=== PATIENT | female | born 1985 | race Caucasian/White ===

== ENCOUNTER 2017-09-22 15:25 | Outpatient (CLI) | payer BC | END 2017-09-22 15:26 | disposition home or self-care (01) | LOC: BICRAD 15:25 | PROVIDERS: ATTEND Family Medicine | DX: M54.5 Low back pain (principal); M47.897 Other spondylosis, lumbosacral region | CPT/HCPCS: 72100 ==

== ENCOUNTER 2018-12-06 06:54 | Emergency (ER) | payer BC ==
[2018-12-06] MEDS ORDERED: Morphine 4 MG/ML VIAL ONE (07:16)
[2018-12-06] MEDS ORDERED: Ondansetron PF 4 MG/2 ML Vial ONE (07:16)
[2018-12-06 07:24] LABS: #Basophils 0.2 thou/uL (0.0-0.2); #Eosinphils 0.4 thou/uL (0.0-0.7); #Lymphocytes 5.2 thou/uL (1.20-3.40); #Monocytes 0.6 thou/uL (0.11-0.59); #Neutrophils 7.5 thou/uL (1.40-6.50); %Basophils 1.3 % (0.0-1.0); %Eosinophils 2.6 % (0.0-10.0); %Lymphocytes 37.8 % (21.0-51.0); %Monocytes 4.4 % (0.0-10.0); Hemoglobin 14.4 g/dL (12.0-16.0); Mean Corpuscular Hemoglobin 28.5 pg (27.0-31.0); Mean Corpuscular Volume 86.4 fL (78.0-98.0); Mean Platelet Volume 7.6 fL (7.4-10.4); Platelet Count 301 thou/uL (130-400); RBC Distribution Width 11.8 % (11.5-14.5); Red Blood Cell (RBC) Count 5.05 mill/uL (4.20-5.40); White Blood Cell (WBC) Count 13.9 thou/uL (4.8-10.8)
[2018-12-06 07:46] LABS: ALT (SGPT) 10 U/L (8-55); AST (SGOT) 23 U/L (5-34); Albumin 3.8 g/dL (3.5-5.0); Alkaline Phosphatase 100 U/L (40-150); Anion Gap 16 mmol/L (10-20); BUN (Urea Nitrogen) 8 mg/dL (7.0-18.7); Bilirubin, Total 0.3 mg/dL (0.2-1.2); Calc. Creatinine Clearance 0 mL/min (70-130); Calcium 9.2 mg/dL (7.8-10.44); Carbon Dioxide 18 mmol/L (22-29); Chloride 107 mmol/L (98-107); Estimated GFR-MDRD 87; Globulin 3.5 g/dL (2.4-3.5); Glucose 137 mg/dL (70-105); Potassium 4.6 mmol/L (3.5-5.1); Protein, Total 7.3 g/dL (6.0-8.3); Sodium 136 mmol/L (136-145)
--- NOTE | 2018-12-06 10:29 | ULT ---
ULTRASOUND PELVIS: 12/06/2018 HISTORY: A 33-year-old female status post miscarriage at 10 weeks' , presents with heavy vaginal blee ding and pelvic/abdominal pain. TECHNIQUE: A transabdominal transducer was used to evaluate the intrapelvic contents. A transvaginal transducer was not used. FINDINGS: The uterus measures approximately 10.5 x 4.5 x 7.5 cm. Located caudal to the uterus and dorsal to the urinary bladder, there is a complex structure, measuring approximately 5 x 2.5 x 4.5 cm. It consist s of an anechoic, fluid component anteriorly, and a solid, intermediate echogenicity component demographic analyst iorly. The solid component could represent hematoma/blood clots and/or retained products of concepti on. Embedded within the intermediate echogenicity solid material, there are tiny, hyperechoic foci, which are suspicious for tiny fragments of products of conception. The entire mass could either be i n the cervical canal or vaginal canal. No free fluid in the cul-de-sac. The bilateral ovaries are not visualized. Dr. Silva discussed the findings by telephone with Dr. Chand of the emergency department at the time of this dictation. IMPRESSION: Solid mass, partially surrounding by fluid, probably located either in the endocervical canal or the vaginal canal, consistent with blood clots, and also very suspicious for retained products of concept ion. POS: ANISA
--- NOTE | 2018-12-06 11:23 | CON ---
DATE OF CONSULTATION: 12/06/2018 Consult from the ER doctor for missed versus completed miscarriage. BACKGROUND INFORMATION: Ms. Pedro Perez is a 33-year-old, G1, who was diagnosed with a missed miscarriage over the weekend at an outside facility at approximately 10 weeks. 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 The patient had been seeing a reproductive endocrinology with a confirmed in the right uterine horn. After bleeding last week, she had a confirmed miscarriage, which was also confirmed in my office yesterday. She was counseled for medical management versus surgical management options and elected for Cytotec administration at home. She did two doses of Cytotec late yesterday evening and began having cramping pain and feeling dizzy and weak early this morning. She presented to the ER. I was called while in the operating room and notified of the patient's normal labs and normal vital signs. An ultrasound was ordered with the radiologist giving a verbal report to the ER doctor of products of conception suspected to be in the vaginal canal. After my surgical procedure completed, I presented to examine the patient in lithotomy position and after her consent, the speculum was placed into the vagina. Copious amount of clear fluid was noted and slipped out of the vaginal vault and an intact approximate 10-week fetus with placental tissue was noted in the vagina and gently removed. The patient was shown at her request, the products of conception specimen. After the products were removed from the vaginal vault, the cervix was identified. Only scant bleeding was noted from the cervix. The patient reported at that time that her symptoms of dizziness and weakness had resolved. She did not have any active bleeding on exam. The speculum was removed. The patient was cleaned and returned to the regular ER bed. We discussed observation over the next 20 to 30 minutes. If she is feeling well, we will discharge her home at that time. Job ID: [id number]
== END 2018-12-06 11:48 | disposition home or self-care (01) ==
LOC: ERS 06:54
DX: O03.4 Incomplete spontaneous abortion without complication (principal)
CPT/HCPCS: 36415; 76856; 80053; 85025; 86850; 86900; 86901; 88305; 93005; 96361; 96374; 96375; J2270; J2405

== ENCOUNTER 2019-08-22 10:20 | Emergency (ER) | payer BC ==
[2019-08-22 11:54] LABS: ALT (SGPT) 13 U/L (8-55); AST (SGOT) 14 U/L (5-34); Albumin 4.1 g/dL (3.5-5.0); Alkaline Phosphatase 97 U/L (40-110); Anion Gap 12 mmol/L (10-20); BUN (Urea Nitrogen) 11 mg/dL (7.0-18.7); Bilirubin, Total 0.5 mg/dL (0.2-1.2); Calc. Creatinine Clearance 0 mL/min (70-130); Calcium 9.2 mg/dL (7.8-10.44); Carbon Dioxide 25 mmol/L (22-29); Chloride 105 mmol/L (98-107); Estimated GFR-MDRD 84; Globulin 2.6 g/dL (2.4-3.5); Glucose 91 mg/dL (70-105); Potassium 4.6 mmol/L (3.5-5.1); Protein, Total 6.7 g/dL (6.0-8.3); Sodium 137 mmol/L (136-145)
[2019-08-22 12:07] LABS: #Basophils 0.1 thou/uL (0.0-0.2); #Eosinphils 0.2 thou/uL (0.0-0.7); #Lymphocytes 3.2 thou/uL (1.20-3.40); #Monocytes 0.6 thou/uL (0.11-0.59); #Neutrophils 5.2 thou/uL (1.40-6.50); %Eosinophils 1.7 % (0.0-10.0); %Lymphocytes 34.2 % (21.0-51.0); %Monocytes 6.8 % (0.0-10.0); %Neutrophils 56.4 % (42.0-75.0); Hemoglobin 12.9 g/dL (12.0-16.0); Mean Corpuscular HGB CONC 32.7 g/dL (32.0-36.0); Mean Corpuscular Hemoglobin 28.1 pg (27.0-31.0); Mean Platelet Volume 7.6 fL (7.4-10.4); Platelet Count 293 thou/uL (130-400); RBC Distribution Width 11.7 % (11.5-14.5); Red Blood Cell (RBC) Count 4.59 mill/uL (4.20-5.40); White Blood Cell (WBC) Count 9.2 thou/uL (4.8-10.8)
--- NOTE | 2019-08-22 13:17 | ULT ---
EXAM: Pelvic ultrasound HISTORY: Vaginal bleeding and clots. Patient had demise in June. COMPARISON: None TECHNIQUE: Multiple grayscale and color Doppler images were obtained in a transabdominal and transvag inal pelvic ultrasound. Spectral analysis of the Doppler waveforms of the ovaries were performed. FINDINGS: CERVIX: Nabothian cyst is seen. Fluid is seen in the vagina and within the cervix. UTERUS: A heterogeneous fluid collection is seen within the uterus which likely represents both retai adán products of conception and blood products. No free fluid is seen in the pelvis. RIGHT OVARY: Normal flow without focal mass. A corpus luteum cyst is seen in the right ovary. LEFT OVARY: Normal flow without focal mass. IMPRESSION: Patient appears to have retained products of conception within the uterus with blood seen in the endometrial canal, cervix, and vagina.
[2019-08-22 13:34] LABS: Bacteria/HPF None Seen HPF (None Seen); Bilirubin Negative (Negative); Blood, Urine 2+ (Negative); Clarity Clear (Clear); Glucose, Urine (Dipstick) Normal (Negative); Leukocyte Negative Leu/uL (Negative); Nitrite Negative (Negative); Protein, Urine (Dipstick) 50 mg/dL (Neg-Trace); RBC/HPF Greater than 50 HPF (0-3); Squamous Epithelial 0-3 HPF (0-3); Urobilinogen Normal mg/dL (Less than 2); WBC/HPF 0-3 HPF (0-3)
[2019-08-22 13:37] LABS: Pregnancy Test - Urine (BHCG) Negative (Negative); Pregu Control Background? CLEAR/WHITE (CLR/WHITE); Pregu Control Bar Appear? YES (CONTROL BAR); Specific Gravity 1.011 (1.002-1.036)
[2019-08-22] MEDS ORDERED: Morphine 4 MG/ML VIAL ONE (14:01)
[2019-08-22] MEDS ORDERED: Ondansetron PF 4 MG/2 ML Vial ONE (14:02)
[2019-08-22] MEDS ORDERED: Tranexamic Acid 1,000 MG/10 ML VIAL ONE (15:18)
--- NOTE | 2019-08-22 15:36 | CON ---
DATE OF CONSULTATION: 08/22/2019 TIME OF EVALUATION: Roughly 1455 hours until 1510 hours. LOCATION: ER bed 13. REASON FOR EVALUATION: History of miscarriage with decreasing beta-hCG and some vaginal bleeding today. She is followed by Dr. Morrell with [facility] in [place] as well as [facility] [place] here locally. REQUESTING PHYSICIAN: The ER physician, Dr. Vincent Malagon. HISTORY OF PRESENT ILLNESS: In brief, this is a 34-year-old female, G2, P0, with one previous first-trimester miscarriage at 10 weeks and now with a 2nd miscarriage, who is being followed by Dr. Morrell. He is an infertility physician in [place]. She has a known rudimentary left uterine horn, which based on the ER providers communication with Dr. Morrell is a location of this . The patient comes in today because she has some increased cramping and passed a large clot versus tissue while at work. She denies fever, loss of consciousness, palpitations, or shortness of breath. REVIEW OF SYSTEMS: Complete review of systems was checked and is otherwise negative unless specified in the HPI. PAST MEDICAL HISTORY: Noncontributory. 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 Her beta-hCG is being followed by Dr. Morrell and was 80, 30s, and then was 25 today. Her hemoglobin today was 12. PHYSICAL EXAMINATION: GENERAL: I evaluated the patient at bedside and found her in no acute distress. She was alert and oriented with good pain control. VITAL SIGNS: Blood pressure of 122/72 and pulse of 72, and she is afebrile. ABDOMEN: Soft and nontender. I performed gross visual inspection of the perineal area and had her cough and Valsalva and there was no passage of tissue through the vaginal vault. I did not perform a speculum examination as the ER physician had already done so. DIAGNOSTIC STUDIES: Ultrasound performed in the ER with no evidence of adnexal mass noted, but there was some material in the full right uterine horn, which was likely residual decidual cast versus an Casas-Karin reaction. ASSESSMENT: This is a G2, P0, now with SAB2 , who is being followed by Infertility with a decreasing beta-hCG and what looks like passage of a decidual cast. She is Rh positive. She is not hypotensive or tachycardic. There is no active vaginal bleeding now. PLAN: 1. I discussed with the patient and her her OB history. Per Dr. Morrell, through the patient's history, D and C was attempted previously with her 1st miscarriage, but because of the noncommunicating horn, it made the procedure difficult. They have elected to follow her expectantly. I agree with this plan of care as it is the most fitting at this time. 2. No indication for Cytotec at this time. 3. Recommend beta-hCG followup in 48 hours. Job ID: [id number]
== END 2019-08-22 15:56 | disposition home or self-care (01) ==
LOC: ERS 10:20
DX: N93.9 Abnormal uterine and vaginal bleeding, unspecified (principal)
CPT/HCPCS: 36415; 76856; 80053; 81003; 81015; 81025; 84702; 85025; 86900; 86901; 96374; 96375; J2270; J2405